=== PATIENT | male | born 1950 | race Caucasian/White ===

== ENCOUNTER → 2016-07-21 | Outpatient (CLI) | payer BC ==
[~2016-07-21] MED LIST: CHLO125TA PO; LISI-538 PO; MELO15TA4 PO
[2016-07-21 19:19] LABS: ALBUMIN 3.3 GM/DL (3.2-5.2); ALBUMIN/GLOBULIN RATIO 0.61 (1.00-1.93); ALKALINE PHOSPHATASE 94 U/L (45-117); ALT/SGPT 22 U/L (12-78); ANION GAP 10 MEQ/L (8-16); AST/SGOT 19 U/L (15-37); BILIRUBIN,TOTAL 0.7 MG/DL (0.2-1.0); BLOOD UREA NITROGEN 23 MG/DL (7-18); CALCIUM LEVEL 9.4 MG/DL (8.8-10.2); CARBON DIOXIDE LEVEL 29 MEQ/L (21-32); CHLORIDE LEVEL 104 MEQ/L (98-107); CHOLESTEROL LEVEL 151 MG/DL (<200); CREATININE FOR GFR 0.71 MG/DL (0.70-1.30); GLOMERULAR FILTRATION RATE > 60.0 (>49); GLUCOSE, FASTING 83 MG/DL (80-110); POTASSIUM SERUM 4.3 MEQ/L (3.5-5.1); SODIUM LEVEL 143 MEQ/L (136-145); TOTAL PROTEIN 8.7 GM/DL (6.4-8.2); TRIGLYCERIDES LEVEL 49 MG/DL (<150)
== END ==
LOC: M WUC 09:24
PROVIDERS: ATTEND Emergency Medicine
DX: I10 Essential (primary) hypertension (principal); E55.9 Vitamin D deficiency, unspecified

== ENCOUNTER → 2017-08-03 | Outpatient (CLI) | payer BC ==
[2017-08-03 12:26] LABS: ALBUMIN 3.1 GM/DL (3.2-5.2); ALBUMIN/GLOBULIN RATIO 0.53 (1.00-1.93); ALKALINE PHOSPHATASE 73 U/L (45-117); ALT/SGPT 21 U/L (12-78); ANION GAP 3 MEQ/L (8-16); AST/SGOT 18 U/L (7-37); BILIRUBIN,TOTAL 0.6 MG/DL (0.2-1.0); BLOOD UREA NITROGEN 20 MG/DL (7-18); CALCIUM LEVEL 9.1 MG/DL (8.8-10.2); CARBON DIOXIDE LEVEL 31 MEQ/L (21-32); CHLORIDE LEVEL 106 MEQ/L (98-107); CHOLESTEROL LEVEL 133 MG/DL (<200); CHOLESTEROL RISK RATIO 4.433 (<5); CREATININE FOR GFR 0.69 MG/DL (0.70-1.30); GLOMERULAR FILTRATION RATE > 60.0 (>49); GLUCOSE, FASTING 85 MG/DL (70-100); HDL CHOLESTEROL 30 MG/DL (>40); LDL CHOLESTEROL 90.6 MG/DL (<100); NON-HDL-C 103 MG/DL; POTASSIUM SERUM 4.3 MEQ/L (3.5-5.1); SODIUM LEVEL 140 MEQ/L (136-145); TOTAL PROTEIN 8.9 GM/DL (6.4-8.2); TRIGLYCERIDES LEVEL 62 MG/DL (<150)
== END ==
LOC: M WUC 08:30
DX: E55.9 Vitamin D deficiency, unspecified (principal); I10 Essential (primary) hypertension
CPT/HCPCS: 80053

== ENCOUNTER → 2017-11-27 | Outpatient (CLI) | payer BC ==
[2017-11-27 16:30] LABS: BASO # 0.1 10^3/uL (0.0-0.2); BASO % 1.6 % (0.0-1.0); EOS # 0.2 10^3/uL (0.0-0.50); HEMATOCRIT 39.3 % (42.0-52.0); HEMOGLOBIN 13.4 g/dl (13.5-17.5); IMMATURE GRANULOCYTE % 0.4 % (0-3.0); LYMPH # 1.9 10^3/uL (1.5-4.5); LYMPH % 22.7 % (24.0-44.0); MEAN CORPUSCULAR HEMOGLOBIN 30.7 pg (27.0-33.0); MEAN CORPUSCULAR HGB CONC 34.1 g/dl (32.0-36.5); MEAN CORPUSCULAR VOLUME 90.1 fl (80.0-96.0); MONO # 1.1 10^3/uL (0.0-0.8); MONO % 13.1 % (0.0-5.0); NEUTROPHILS # 4.9 10^3/uL (1.8-7.7); NEUTROPHILS % 60.2 % (36.0-66.0); PLATELET COUNT, AUTOMATED 315 10^3/uL (150-450); RED BLOOD COUNT 4.36 10^6/uL (4.30-6.10); RED CELL DISTRIBUTION WIDTH 12.6 % (11.5-14.5); WHITE BLOOD COUNT 8.2 10^3/uL (4.0-10.0)
[2017-11-27 16:41] LABS: ALBUMIN 3.2 GM/DL (3.2-5.2); ALBUMIN/GLOBULIN RATIO 0.58 (1.00-1.93); ALKALINE PHOSPHATASE 91 U/L (45-117); ALT/SGPT 24 U/L (12-78); ANION GAP 7 MEQ/L (8-16); AST/SGOT 16 U/L (7-37); BILIRUBIN,TOTAL 0.4 MG/DL (0.2-1.0); BLOOD UREA NITROGEN 20 MG/DL (7-18); CALCIUM LEVEL 9.2 MG/DL (8.8-10.2); CARBON DIOXIDE LEVEL 30 MEQ/L (21-32); CHLORIDE LEVEL 105 MEQ/L (98-107); CREATININE FOR GFR 0.81 MG/DL (0.70-1.30); FERRITIN 75 NG/ML (26-388); GLOMERULAR FILTRATION RATE > 60.0 (>49); GLUCOSE, FASTING 82 MG/DL (70-100); POTASSIUM SERUM 3.7 MEQ/L (3.5-5.1); SODIUM LEVEL 142 MEQ/L (136-145); TOTAL PROTEIN 8.7 GM/DL (6.4-8.2)
[2017-11-27 16:46] LABS: VITAMIN B12 LEVEL 555 PG/ML (247-911)
[2017-11-27 16:52] LABS: ESTIMATED AVERAGE GLUCOSE 103 MG/DL (60-110); HEMOGLOBIN A1c 5.2 %
[2017-11-27 18:17] LABS: IRON (FE) 248 UG/DL (65-175)
== END ==
LOC: M WUC 14:56
DX: R06.02 Shortness of breath (principal); D64.9 Anemia, unspecified; E11.9 Type 2 diabetes mellitus without complications
CPT/HCPCS: 83540

== ENCOUNTER → 2018-02-16 | Outpatient (CLI) | payer MEDICARE ==
[2018-02-16 18:20] LABS: ALBUMIN 3.5 GM/DL (3.2-5.2); ANION GAP 8 MEQ/L (8-16); BLOOD UREA NITROGEN 20 MG/DL (7-18); CALCIUM LEVEL 9.8 MG/DL (8.8-10.2); CARBON DIOXIDE LEVEL 29 MEQ/L (21-32); CHLORIDE LEVEL 102 MEQ/L (98-107); CREATININE FOR GFR 0.79 MG/DL (0.70-1.30); GLOMERULAR FILTRATION RATE > 60.0 (>49); GLUCOSE, FASTING 71 MG/DL (70-100); PHOSPHORUS LEVEL 4.1 MG/DL (2.5-4.9); POTASSIUM SERUM 4.2 MEQ/L (3.5-5.1); SODIUM LEVEL 139 MEQ/L (136-145)
== END ==
LOC: M WUC 16:21
DX: I11.9 Hypertensive heart disease without heart failure (principal)
CPT/HCPCS: 80069

== ENCOUNTER → 2018-03-28 | Outpatient (CLI) | payer MEDICARE | LOC: M RAD 16:59 | DX: D47.9 Neoplasm of uncertain behavior of lymphoid, hematopoietic and related tissue, unspecified (principal); M47.896 Other spondylosis, lumbar region; M43.16 Spondylolisthesis, lumbar region | CPT/HCPCS: 77075 ==

== ENCOUNTER → 2018-05-13 | Outpatient (CLI) | payer MEDICARE ==
[~2018-05-13] MED LIST changes: +ALEV220C2 PO; +AMLO5TAB6 PO; +ASPI81TA85 PO; +CELE100C PO; +MELO15TA28 PO; -MELO15TA4 PO
--- NOTE | 2018-05-13 14:58 | REP ---
PET/CT: History: Staging of lymphoma. 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 Comparison chest CT study is reviewed from October 18, 2015. TECHNIQUE: 1 hour 14 minutes following the intravenous injection of a 7.5 mCi dose of F-18 FDG, three-dimensional PET scintigraphy is acquired from the skull base to the proximal thighs. Triplanar noncontrast CT scanning is acquired through the same anatomic range for attenuation correction, and image registration with scan parameters optimized to minimize radiation exposure to the patient. PET scintigraphy and CT datasets were fused and displayed on a workstation with multiplanar and projection display capability. PET/CT Findings: Head and neck soft tissues are unremarkable. There is no abnormal hypermetabolic uptake within the chest. Granulomatous lymph node calcification is seen in the left hilus. No pulmonary parenchymal hypermetabolic uptake is appreciated. There are multiple hepatic cysts unchanged from comparison CT study 2016. No hypermetabolic uptake is seen within the liver. Normal hepatic, splenic, gastrointestinal and genitourinary FDG accumulation is seen. No abnormal abdominal or pelvic hypermetabolic uptake is observed. There is some soft tissue uptake about the recently replaced left hip arthroplasty. A right hip arthroplasty is also noted. There is evidence of a left scrotal hydrocele. There is mildly increased bone marrow uptake in a somewhat patchy pattern in the lumbosacral spine, iliac bones and sacrum, and to some degree thoracic spine. This is equivocal. No bony destructive lesion is seen. There is bilateral L5 spondylolysis and a grade II L5-S1 spondylolisthesis is seen. At L2, there is partial wedge-shaped collapse of the vertebral body although this area shows no significant avidity. No other abnormality. Impression: There is no evidence of hypermetabolic lymphadenopathy or abnormal abdominal organ uptake. There are equivocal patchy changes in the axial skeleton bone marrow as above. L5-S1 spondylolisthesis due to L5 spondylolysis. Chronic-appearing wedge deformity at L2. Electronically Signed by Bret Andrew MD 05/13/2018 04:43 P
== END ==
LOC: M PLARAD 07:40
PROVIDERS: ATTEND Internal Medicine Hematology & Oncology
DX: C85.15 Unspecified B-cell lymphoma, lymph nodes of inguinal region and lower limb (principal); M25.511 Pain in right shoulder; R29.898 Other symptoms and signs involving the musculoskeletal system
CPT/HCPCS: 78815; A9552

== ENCOUNTER 2018-05-21 06:51 | Day surgery (SDC) | payer MEDICARE ==
[~2018-05-21] VITALS: Ht 180.3 cm; Wt 87.5 kg
[~2018-05-21 06:51] MED LIST changes: +NS 1,000 ML IV SCH
[2018-05-21] MEDS ORDERED: PROPOFOL 200 MG/20 ML VIAL As Ordered ONE (08:13)
[2018-05-21] MEDS ORDERED: LIDOCAINE 2% INJ 100 MG/5 ML SDV (FOR ANES.) As Ordered ONE (08:13)
--- NOTE | 2018-05-21 08:28 | ROOR ---
Patient Name: Omega Villasenor Procedure Date: 05/21/2018 8:07 AM Date of : 1950 Age: 67 Room: [facility] Gender: Male Note Status: Finalized Procedure: Total Colonoscopy to Cecum Indications: Screening for colorectal malignant neoplasm, Last colonoscopy: 2007 Providers: Wayne Silvestre MD Referring MD: Jane Chamberlain MD Requesting Provider: Medicines: Monitored Anesthesia Care Complications: No immediate complications. Procedure: Pre-Anesthesia Assessment: - The heart rate, respiratory rate, oxygen saturations, blood pressure, adequacy of pulmonary ventilation, and response to care were monitored throughout the procedure. The Colonoscope was introduced through the anus and advanced to the cecum, identified by appendiceal orifice and ileocecal valve. The colonoscopy was performed without difficulty. The patient tolerated the procedure well. The quality of the bowel preparation was excellent. Findings: The perianal and digital rectal examinations were normal. No other significant abnormalities were identified in a careful examination of the remainder of the colon. The exam was otherwise without abnormality on direct and retroflexion views. Impression: - The examination was otherwise normal on direct and retroflexion views. - No specimens collected. - The exam was otherwise normal to the cecum. Recommendation: - Patient has a contact number available for emergencies. The signs and symptoms of potential delayed complications were discussed with the patient. Return to normal activities tomorrow. Written discharge instructions were provided to the patient. - High fiber diet. - Discharge patient to home. - Continue present medications. - Repeat colonoscopy in 10 years for screening purposes. - Return to referring physician. - The findings and recommendations were discussed with the patient's family. Wayne Silvestre MD Wayne Silvestre MD 05/21/2018 8:28:23 AM This report has been signed electronically. Number of Addenda: 0 Note Initiated On: 05/21/2018 8:07 AM Estimated Blood Loss: Estimated blood loss: none.
[2018-05-21 08:46] VITALS: BP 115/72
== END 2018-05-21 08:56 | disposition home or self-care (01) ==
LOC: M OPP 06:51
PROVIDERS: ATTEND Internal Medicine Gastroenterology
DX: Z12.11 Encounter for screening for malignant neoplasm of colon (principal); I10 Essential (primary) hypertension; Z79.899 Other long term (current) drug therapy

== ENCOUNTER → 2018-09-15 | Outpatient (CLI) | payer MEDICARE ==
[~2018-09-15] MED LIST changes: +ALEV220T22 PO; +LISI40TA PO; -NS 1,000 ML IV SCH
[2018-09-15 09:49] LABS: ALBUMIN 3.2 GM/DL (3.2-5.2); ALT/SGPT 19 U/L (12-78); BILIRUBIN,TOTAL 0.5 MG/DL (0.2-1.0); BLOOD UREA NITROGEN 18 MG/DL (7-18); CALCIUM LEVEL 8.9 MG/DL (8.8-10.2); CARBON DIOXIDE LEVEL 29 MEQ/L (21-32); CHLORIDE LEVEL 108 MEQ/L (98-107); CHOLESTEROL LEVEL 141 MG/DL (<200); CHOLESTEROL RISK RATIO 4.147 (<5); CREATININE FOR GFR 0.74 MG/DL (0.70-1.30); GLOMERULAR FILTRATION RATE > 60.0 (>49); GLUCOSE, FASTING 81 MG/DL (70-100); HDL CHOLESTEROL 34 MG/DL (>40); LDL CHOLESTEROL 97 MG/DL (<100); NON-HDL-C 107 MG/DL; SODIUM LEVEL 141 MEQ/L (136-145); TOTAL PROTEIN 8.5 GM/DL (6.4-8.2); TRIGLYCERIDES LEVEL 50 MG/DL (<150)
[2018-09-15 10:00] LABS: TOTAL 25(OH) VITAMIN D 34.7 NG/ML (30.0-100.0)
== END ==
LOC: M WUC 08:06
PROVIDERS: ATTEND Physician Assistant
DX: I10 Essential (primary) hypertension (principal); E55.9 Vitamin D deficiency, unspecified

== ENCOUNTER 2019-01-22 20:23 | Emergency (ER) | payer MEDICARE ==
[~2019-01-22] VITALS: Ht 177.8 cm; Wt 90.9 kg
[2019-01-22] MEDS ORDERED: AMLO10TA5 (20:31)
[2019-01-22] MEDS ORDERED: KETOROLAC 60 MG/2 ML VIAL (J1885) IM ONE (21:00)
--- NOTE | 2019-01-22 22:14 | REPVR ---
PROCEDURE INFORMATION: Exam: CT Thoracic Spine Without Contrast Exam date and time: 01/22/2019 9:01 PM Clinical history: 68 years old, male; Pain in thoracic spine; Additional info: HX fracture, feels same, lifted 500 pound pop TECHNIQUE: Imaging protocol: Computed tomography images of the thoracic spine without contrast. Radiation optimization: All CT scans at this facility use at least one of these dose optimization techniques: automated exposure control; mA and/or kV adjustment per patient size (includes targeted exams where dose is matched to clinical indication); or iterative reconstruction. COMPARISON: No relevant prior studies available. FINDINGS: Vertebrae: Thoracic vertebral body heights are maintained. Multilevel facet arthropathy. Spinous processes are intact. No acute thoracic spine fracture. Discs/Spinal canal/Neural foramina: Multilevel degenerative disc height loss and osteophyte formation. No significant areas of canal narrowing. Soft tissues: Unremarkable. IMPRESSION: No acute findings in the thoracic spine. Please refer to concurrent CT lumbar spine for additional findings. Electronically signed by: Calderon Morin On 01/22/2019 22:14:09 PM
--- NOTE | 2019-01-22 22:21 | REPVR ---
PROCEDURE INFORMATION: Exam: CT Lumbar Spine Without Contrast Exam date and time: 01/22/2019 9:01 PM Clinical history: 68 years old, male; Low back pain; Additional info: HX fracture, feels same, lifted 500 pound pop TECHNIQUE: Imaging protocol: Computed tomography images of the lumbar spine without contrast. Radiation optimization: All CT scans at this facility use at least one of these dose optimization techniques: automated exposure control; mA and/or kV adjustment per patient size (includes targeted exams where dose is matched to clinical indication); or iterative reconstruction. COMPARISON: PET/CT Skull/mid thigh 05/13/2018 10:16:01 AM FINDINGS: Vertebrae: Chronic moderate compression deformity of the inferior endplate of L2, unchanged in appearance from prior PET/CT from 05/13/2018.. Remaining lumbar vertebral body heights are intact. Chronic bilateral L5 spondylolysis. 1 cm grade 1 anterolisthesis of L5 on S1. Multilevel facet arthropathy. Discs/Spinal canal/Neural foramina: Multilevel degenerative changes with intervertebral disc height loss and osteophyte formation. Soft tissues: Unremarkable. IMPRESSION: 1. No acute lumbar spine fracture. 2. Other chronic findings, as above. Electronically signed by: Calderon Morin On 01/22/2019 22:20:36 PM
[2019-01-22] MEDS ORDERED: KETO10TAB PO (22:32)
[2019-01-22 22:41] VITALS: BP 168/80
== END 2019-01-22 22:42 | disposition home or self-care (01) ==
LOC: M ED 20:23
DX: S39.92XA Unspecified injury of lower back, initial encounter (principal); X50.0XXA Overexertion from strenuous movement or load, initial encounter; Y92.9 Unspecified place or not applicable; I10 Essential (primary) hypertension; Z79.899 Other long term (current) drug therapy
CPT/HCPCS: 72128; 72131; 96372; 99283; J1885

== ENCOUNTER → 2019-03-18 | Outpatient (CLI) | payer MEDICARE ==
[~2019-03-18] MED LIST changes: +AMLO10TA5; +KETO10TAB PO
--- NOTE | 2019-03-18 15:22 | REP ---
Two views lumbar spine: 03/18/2019. Indication: Low back pain. Comparison: CT lumbar spine dated 01/22/2019. Findings: Compared to the prior study, there is a new L4 superior endplate compression deformity with approximately 50% loss of craniocaudal height. The L2 compression deformity is redemonstrated. There is no significant change in alignment. No significant retropulsion of fracture fragments into the spinal canal is detected. There is no instability demonstrated on the flexion/extension views. Impression: New superior endplate compression deformity of L4 compared to approximately 2 months earlier. Otherwise unchanged. Electronically Signed by Juan Mendoza DO 03/18/2019 03:13 P
== END ==
LOC: M RAD 12:09
DX: M43.17 Spondylolisthesis, lumbosacral region (principal)

== ENCOUNTER → 2019-04-10 | Outpatient (REF) | payer MEDICARE ==
[2019-04-10 13:08] LABS: BLOOD UREA NITROGEN 21 MG/DL (7-18); CREATININE FOR GFR 0.78 MG/DL (0.70-1.30); GLOMERULAR FILTRATION RATE > 60.0 (>49)
== END ==
LOC: M LABDRAW1 12:10
PROVIDERS: ATTEND Orthopaedic Surgery
DX: S32.040A Wedge compression fracture of fourth lumbar vertebra, initial encounter for closed fracture (principal); W18.30XA Fall on same level, unspecified, initial encounter; Y92.009 Unspecified place in unspecified non-institutional (private) residence as the place of occurrence of the external cause

== ENCOUNTER → 2019-04-27 | Outpatient (CLI) | payer MEDICARE ==
[~2019-04-27] MED LIST changes: +PROHANCE 279.3MG/ML 15ML VIAL (A9576) As Ordered ONE; +PROHANCE 279.3MG/ML 5ML VIAL (A9576) As Ordered ONE
--- NOTE | 2019-04-27 11:39 | REPVR ---
PROCEDURE INFORMATION: Exam: MR Lumbar Spine Without and With Contrast. Exam date and time: 04/27/2019 10:19 AM Age: 68 years old Clinical indication: Low back pain; Patient HX: Lbp into hips known FX l4; Additional info: Lbp compression FX l4 TECHNIQUE: Imaging protocol: Multiplanar magnetic resonance images of the lumbar spine without and with intravenous contrast. Contrast material: PROHANCE; Contrast volume: 17 ml; Contrast route: 22G BUTTERFLY; COMPARISON: CR Spine, Lumbosacral, partial 03/18/2019 12:24 PM FINDINGS: Vertebrae: Chronic L2 and L4 compression fractures are present. Moderate/severe vertebral body height loss is present at these levels. There is mild retropulsion of the posterior inferior corner of L2 into the spinal canal. No acute compression fracture is seen. There are chronic bilateral pars defects at L5. This is resulting in 11 mm of anterolisthesis of L5 on S1. Spinal cord: The conus medullaris terminates at the L1-L2 level. There is no evidence of arachnoiditis or cauda equina compression. L1-L2: There is minimal circumferential disc bulging and mild facet arthropathy. A bridging osteophyte is noted in the left extraforaminal region. There is no significant spinal canal stenosis or right neural foraminal narrowing. Moderate left neural foraminal narrowing is present. L2-L3: There is moderate circumferential disc bulging, circumferential osteophytic ridging, and facet arthropathy. This is causing mild spinal canal stenosis, moderate narrowing of the subarticular recesses, and moderate bilateral neural foraminal narrowing. L3-L4: There is moderate circumferential disc bulging, thickening of the ligamentum flavum, and facet arthropathy. This is causing moderate spinal canal stenosis, moderate narrowing of the subarticular recesses, moderate left neural foraminal narrowing, and moderate/severe right neural foraminal narrowing. L4-L5: There is mild circumferential disc bulging, thickening of the ligamentum flavum, and facet arthropathy. This is causing mild spinal canal stenosis, moderate left neural foraminal narrowing, and moderate/severe right neural foraminal narrowing. L5-S1: There is severe disc space narrowing with uncovering of the posterior disc due to spondylolisthesis. Facet arthropathy is present. There is severe bilateral neural foraminal narrowing, predominantly due to the underlying chronic L5 pars defects and resulting anterolisthesis of L5 on S1. This is causing compression of the exiting L5 nerves, particularly on the left. Mild spinal canal stenosis is also present. Soft tissues: Unremarkable. IMPRESSION: 1. Chronic L5 pars defects resulting in 11 mm of anterolisthesis of L5 on S1 and severe bilateral neural foraminal narrowing. Compression of the exiting L5 nerves is present, particularly on the left. 2. Chronic L2 and L4 compression fractures 3. Chronic degenerative changes of the lumbar spine as discussed above Electronically signed by: Kush Hui On 04/27/2019 11:39:00 AM
== END ==
LOC: M RAD 08:33
PROVIDERS: ATTEND Orthopaedic Surgery
DX: S32.040A Wedge compression fracture of fourth lumbar vertebra, initial encounter for closed fracture (principal)
CPT/HCPCS: 72158; A9576

== ENCOUNTER → 2019-10-17 | Outpatient (CLI) | payer MEDICARE ==
[~2019-10-17] MED LIST changes: -AMLO10TA5; +AMLO10TA5 PO; +CYCL5TAB PO; +NUCY50TA19 PO; -PROHANCE 279.3MG/ML 15ML VIAL (A9576) As Ordered ONE; -PROHANCE 279.3MG/ML 5ML VIAL (A9576) As Ordered ONE
[2019-10-17 18:08] LABS: ALBUMIN 3.3 GM/DL (3.2-5.2); ALT/SGPT 22 U/L (12-78); BILIRUBIN,TOTAL 0.9 MG/DL (0.2-1.0); BLOOD UREA NITROGEN 14 MG/DL (7-18); CALCIUM LEVEL 9.3 MG/DL (8.8-10.2); CARBON DIOXIDE LEVEL 28 MEQ/L (21-32); CHLORIDE LEVEL 107 MEQ/L (98-107); CHOLESTEROL LEVEL 143 MG/DL (<200); CHOLESTEROL RISK RATIO 4.612 (<5); CREATININE FOR GFR 0.74 MG/DL (0.70-1.30); GLOMERULAR FILTRATION RATE > 60.0 (>49); GLUCOSE, FASTING 79 MG/DL (70-100); HDL CHOLESTEROL 31 MG/DL (>40); LDL CHOLESTEROL 102 MG/DL (<100); NON-HDL-C 112 MG/DL; POTASSIUM SERUM 4.3 MEQ/L (3.5-5.1); SODIUM LEVEL 140 MEQ/L (136-145); TOTAL PROTEIN 9.1 GM/DL (6.4-8.2); TRIGLYCERIDES LEVEL 49 MG/DL (<150)
[2019-10-17 18:13] LABS: BASO # 0.1 10^3/uL (0.0-0.2); BASO % 1.9 % (0.0-1.0); EOS # 0.2 10^3/uL (0.0-0.5); EOS % 3.1 % (0.0-3.0); HEMATOCRIT 42.1 % (42.0-52.0); HEMOGLOBIN 13.4 g/dl (13.5-17.5); LYMPH # 1.2 10^3/uL (1.5-5.0); LYMPH % 22.7 % (24.0-44.0); MEAN CORPUSCULAR HEMOGLOBIN 29.6 pg (27.0-33.0); MEAN CORPUSCULAR HGB CONC 31.8 g/dl (32.0-36.5); MEAN CORPUSCULAR VOLUME 93.1 fl (80.0-96.0); MONO # 0.8 10^3/uL (0.0-0.8); MONO % 14.8 % (0.0-5.0); NEUTROPHILS % 57.1 % (36.0-66.0); PLATELET COUNT, AUTOMATED 320 10^3/uL (150-450); RED BLOOD COUNT 4.52 10^6/uL (4.30-6.10); WHITE BLOOD COUNT 5.2 10^3/uL (4.0-10.0)
[2019-10-19 11:29] LABS: TOTAL 25(OH) VITAMIN D 35.3 NG/ML (30.0-100.0)
== END ==
LOC: M WUC 09:49
PROVIDERS: ATTEND Physician Assistant
DX: I10 Essential (primary) hypertension (principal); E55.9 Vitamin D deficiency, unspecified; D48.0 Neoplasm of uncertain behavior of bone and articular cartilage

== ENCOUNTER → 2020-04-25 | Outpatient (REF) | payer MEDICARE ==
[~2020-04-25] MED LIST changes: -AMLO10TA5 PO; +AMLO1TAB24 PO; +AMLO1TAB25 PO; -AMLO5TAB6 PO; -ASPI81TA85 PO; +ASPI81TA86 PO
[2020-04-25 09:08] LABS: BLOOD UREA NITROGEN 24 MG/DL (7-18); CALCIUM LEVEL 8.7 MG/DL (8.8-10.2); CARBON DIOXIDE LEVEL 30 mmol/L (20-29); CHLORIDE LEVEL 107 MEQ/L (98-107); CREATININE FOR GFR 0.67 MG/DL (0.70-1.30); GLOMERULAR FILTRATION RATE > 60.0 (>49); GLUCOSE, FASTING 78 MG/DL (70-100); POTASSIUM SERUM 3.8 MEQ/L (3.5-5.1); SODIUM LEVEL 142 MEQ/L (136-145)
== END ==
LOC: M LAB REF 08:15
PROVIDERS: ATTEND Physician Assistant
DX: I11.9 Hypertensive heart disease without heart failure (principal)

== ENCOUNTER → 2020-11-28 | Outpatient (REF) | payer MEDICARE ==
[~2020-11-28] MED LIST changes: +COVI100V IM; -LISI-538 PO; +LISI20TA33 PO; -LISI40TA PO; +LISI40TA4 PO
[2020-11-28 11:08] LABS: ALT/SGPT 25 U/L (12-78); BILIRUBIN,TOTAL 0.6 MG/DL (0.2-1.0); BLOOD UREA NITROGEN 15 MG/DL (7-18); CALCIUM LEVEL 8.8 MG/DL (8.8-10.2); CARBON DIOXIDE LEVEL 29 MEQ/L (21-32); CHLORIDE LEVEL 108 MEQ/L (98-107); CHOLESTEROL LEVEL 185 MG/DL (<200); CHOLESTEROL RISK RATIO 4.743 (<5); GLOMERULAR FILTRATION RATE > 60.0 (>49); GLUCOSE, FASTING 93 MG/DL (70-100); HDL CHOLESTEROL 39 MG/DL (>40); LDL CHOLESTEROL 134 MG/DL (<100); NON-HDL-C 146 MG/DL; SODIUM LEVEL 141 MEQ/L (136-145); TOTAL PROTEIN 6.6 GM/DL (6.4-8.2); TRIGLYCERIDES LEVEL 60 MG/DL (<150)
== END ==
LOC: M LABWUC 09:45
PROVIDERS: ATTEND Nurse Practitioner Family
DX: I10 Essential (primary) hypertension (principal)

== ENCOUNTER → 2021-11-08 | Outpatient (CLI) | payer MEDICARE ==
[~2021-11-08] MED LIST changes: +NAPR220C14 PO
[2021-11-08 10:14] LABS: ALBUMIN 3.8 GM/DL (3.2-5.2); ALT/SGPT 27 U/L (12-78); BILIRUBIN,TOTAL 0.5 MG/DL (0.2-1.0); BLOOD UREA NITROGEN 22 MG/DL (7-18); CALCIUM LEVEL 9.5 MG/DL (8.8-10.2); CARBON DIOXIDE LEVEL 26 MEQ/L (21-32); CHLORIDE LEVEL 110 MEQ/L (98-107); CHOLESTEROL LEVEL 196 MG/DL (<200); CREATININE FOR GFR 0.93 MG/DL (0.70-1.30); GLOMERULAR FILTRATION RATE > 60.0 (>49); GLUCOSE, FASTING 89 MG/DL (70-100); HDL CHOLESTEROL 35 MG/DL (>40); LDL CHOLESTEROL 143 MG/DL (<100); NON-HDL-C 161 MG/DL; POTASSIUM SERUM 4.5 MEQ/L (3.5-5.1); SODIUM LEVEL 143 MEQ/L (136-145); TOTAL PROTEIN 6.5 GM/DL (6.4-8.2); TRIGLYCERIDES LEVEL 88 MG/DL (<150)
== END ==
LOC: M WUC 08:14
PROVIDERS: ATTEND Nurse Practitioner Family
DX: I10 Essential (primary) hypertension (principal)

== ENCOUNTER → 2022-04-17 | Outpatient (CLI) | payer MEDICARE ==
[~2022-04-17] MED LIST changes: +GABA-282; +PROHANCE 279.3MG/ML 15ML VIAL ONE; +PROHANCE 279.3MG/ML 5ML VIAL ONE
== END ==
LOC: M PLAIMG 12:24
PROVIDERS: ATTEND Internal Medicine Medical Oncology
DX: M23.301 Other meniscus derangements, unspecified lateral meniscus, left knee (principal)
CPT/HCPCS: 73723; A9576

== ENCOUNTER → 2022-05-18 | Outpatient (CLI) | payer MEDICARE ==
[~2022-05-18] MED LIST changes: -PROHANCE 279.3MG/ML 15ML VIAL ONE; -PROHANCE 279.3MG/ML 5ML VIAL ONE
== END ==
LOC: M SOG 08:41
PROVIDERS: ATTEND Orthopaedic Surgery
DX: R10.2 Pelvic and perineal pain (principal); M79.651 Pain in right thigh

== ENCOUNTER → 2022-05-28 | Outpatient (CLI) | payer MEDICARE | LOC: M RAD 07:25 | PROVIDERS: ATTEND Orthopaedic Surgery | DX: M79.651 Pain in right thigh (principal) | CPT/HCPCS: 78315; A9503 ==

== ENCOUNTER → 2022-11-12 | Outpatient (CLI) | payer MEDICARE ==
[2022-11-12 12:00] LABS: ALBUMIN 3.3 G/DL (3.2-5.2); ALKALINE PHOSPHATASE 85 U/L (46-116); ALT/SGPT 27 U/L (7.0-40); AST/SGOT 13 U/L (<34); BILIRUBIN,TOTAL 0.6 MG/DL (0.3-1.2); BLOOD UREA NITROGEN 22 MG/DL (9-23); CALCIUM LEVEL 8.7 MG/DL (8.3-10.6); CARBON DIOXIDE LEVEL 29 MMOL/L (20-31); CHLORIDE LEVEL 107 MMOL/L (98-107); CHOLESTEROL LEVEL 159 MG/DL (<200); CHOLESTEROL RISK RATIO 5.16 (<5); CREATININE FOR GFR 0.74 MG/DL (0.70-1.30); GLOMERULAR FILTRATION RATE > 60.0 (>42); GLUCOSE, FASTING 81 MG/DL (74-106); HDL CHOLESTEROL 30.8 MG/DL (>40); LDL CHOLESTEROL 115.4 MG/DL (<100); NON-HDL-C 128.2 MG/DL; POTASSIUM SERUM 4.6 MMOL/L (3.5-5.1); SODIUM LEVEL 140 MMOL/L (136-145); TOTAL 25(OH) VITAMIN D 35.8 NG/ML (20.0-100.0); TOTAL PROTEIN 5.8 G/DL (5.7-8.2); TRIGLYCERIDES LEVEL 64 MG/DL (<150)
== END ==
LOC: M WUC 08:07
PROVIDERS: ATTEND Nurse Practitioner Family
DX: I11.0 Hypertensive heart disease with heart failure (principal); E55.9 Vitamin D deficiency, unspecified

== ENCOUNTER → 2022-11-15 | Outpatient (CLI) | payer MEDICARE | LOC: M RAD 09:19 | PROVIDERS: ATTEND Nurse Practitioner Family | DX: Z87.891 Personal history of nicotine dependence (principal) ==

== ENCOUNTER → 2023-09-13 | Outpatient (CLI) | payer MEDICARE ==
[~2023-09-13] MED LIST changes: +ACET-683 PO; +ROSU10TA61
== END ==
LOC: M RAD 15:05
PROVIDERS: ATTEND Physician Assistant
DX: R07.81 Pleurodynia (principal)

== ENCOUNTER → 2023-11-13 | Outpatient (CLI) | payer MEDICARE ==
[2023-11-13 10:48] LABS: TOTAL 25(OH) VITAMIN D 53.3 NG/ML (20.0-100.0)
[2023-11-13 10:50] LABS: ALBUMIN 3.8 G/DL (3.2-5.2); ALKALINE PHOSPHATASE 98 U/L (46-116); ALT/SGPT 21 U/L (7.0-40); AST/SGOT 13 U/L (<34); BILIRUBIN,TOTAL 0.7 MG/DL (0.3-1.2); BLOOD UREA NITROGEN 22 MG/DL (9-23); CALCIUM LEVEL 9.4 MG/DL (8.3-10.6); CARBON DIOXIDE LEVEL 28 MMOL/L (20-31); CHLORIDE LEVEL 110 MMOL/L (98-107); CHOLESTEROL LEVEL 130 MG/DL (<200); CHOLESTEROL RISK RATIO 3.66 (<5); CREATININE FOR GFR 0.79 MG/DL (0.70-1.30); GLOMERULAR FILTRATION RATE > 60.0 (>42); GLUCOSE, FASTING 94 MG/DL (74-106); HDL CHOLESTEROL 35.5 MG/DL (>40); LDL CHOLESTEROL 81.7 MG/DL (<100); NON-HDL-C 94.5 MG/DL; SODIUM LEVEL 142 MMOL/L (136-145); TOTAL PROTEIN 6.2 G/DL (5.7-8.2); TRIGLYCERIDES LEVEL 64 MG/DL (<150)
== END ==
LOC: M WUC 08:02
PROVIDERS: ATTEND Nurse Practitioner Family
DX: I11.9 Hypertensive heart disease without heart failure (principal); E55.9 Vitamin D deficiency, unspecified

== ENCOUNTER → 2023-12-12 | Outpatient (CLI) | payer MEDICARE ==
[~2023-12-12] MED LIST changes: +ISOVUE-370 76% 100ML VIAL As Ordered ONE
== END ==
LOC: M RAD 14:15
PROVIDERS: ATTEND Registered Nurse
DX: R29.6 Repeated falls (principal)
CPT/HCPCS: 71046; 71100; Q9967

== ENCOUNTER → 2023-12-12 | Outpatient (CLI) | payer MEDICARE | LOC: M RAD 16:11 | PROVIDERS: ATTEND Registered Nurse | DX: R07.82 Intercostal pain (principal) | CPT/HCPCS: 74177; Q9967 ==

== ENCOUNTER → 2024-11-13 | Outpatient (CLI) | payer MEDICARE ==
[~2024-11-13] MED LIST changes: -CYCL5TAB PO; +CYCL5TAB4 PO; +GABA-1172; -GABA-282; -ISOVUE-370 76% 100ML VIAL As Ordered ONE; +LISI40TA10 PO; -LISI40TA4 PO
[2024-11-13 15:29] LABS: ALT/SGPT 26 U/L (7.0-40); AST/SGOT 26 U/L (<34); CALCIUM LEVEL 9.4 MG/DL (8.3-10.6); CARBON DIOXIDE LEVEL 28 MMOL/L (20-31); CHLORIDE LEVEL 107 MMOL/L (98-107); CHOLESTEROL LEVEL 124 MG/DL (<200); CHOLESTEROL RISK RATIO 3.17 (<5); CREATININE FOR GFR 0.83 MG/DL (0.70-1.30); GLOMERULAR FILTRATION RATE > 90.0 (>42); LDL CHOLESTEROL 73.6 MG/DL (<100); NON-HDL-C 85.0 MG/DL; POTASSIUM SERUM 4.2 MMOL/L (3.5-5.1); SODIUM LEVEL 145 MMOL/L (136-145); TRIGLYCERIDES LEVEL 57 MG/DL (<150)
[2024-11-13 15:32] LABS: TOTAL 25(OH) VITAMIN D 40.2 NG/ML (20.0-100.0)
== END ==
LOC: M WUC 11:17
PROVIDERS: ATTEND Nurse Practitioner Family
DX: I10 Essential (primary) hypertension (principal); E55.9 Vitamin D deficiency, unspecified